=== PATIENT | female | born 1955 | race Two or more races ===

== ENCOUNTER 2021-06-25 07:15 | Inpatient (IN) | payer OTHER ==
[~2021-06-25 07:15] MED LIST: INTEGRA PLUS C1 EACH PO; OXYC1TAB9 PO; XARELTO10 MG PO
[2021-06-25] MEDS ORDERED: COZAAR100 MG (09:22)
[2021-06-25] MEDS ORDERED: NEURONTIN800 MG (09:23)
[2021-06-25] MEDS ORDERED: RESTORIL30 M1 (09:23)
[2021-06-25] MEDS ORDERED: ATORVASTATIN CA20 MG (09:23)
[2021-06-25] MEDS ORDERED: TRAZODONE HCL150 MG (09:23)
[2021-06-25] MEDS ORDERED: METOPROLOL SUCC25 MG (09:23)
[2021-06-25] MEDS ORDERED: TEGRETOL XR200 MG (09:24)
[2021-06-25] MEDS ORDERED: PREVACID30 M1 (09:24)
[2021-06-25] MEDS ORDERED: DEPAKOTE ER250 MG (09:24)
[2021-07-01] MEDS ORDERED: XARELTO10 MG PO (06:36)
[2021-07-01] MEDS ORDERED: OXYC1TAB9 PO (06:36)
[2021-07-01] MEDS ORDERED: INTEGRA PLUS C1 EACH PO (06:36)
[2021-07-01] MEDS ORDERED: BACTRIM DS TAB1 EACH PO (06:36)
== END 2021-07-01 18:58 | DRG 468 ==
LOC: O/R 06-29 07:10 → SURH 06-29 07:15 → SURG 06-29 20:42
PROVIDERS: ADMIT Orthopaedic Surgery Sports Medicine; ATTEND Orthopaedic Surgery Sports Medicine
PROC: 0SRV0J9 Replacement of Right Knee Joint, Tibial Surface with Synthetic Substitute, Cemented, Open Approach (ICD-10-PCS; 2021-06-29)
PROC: 0SPV0JZ Removal of Synthetic Substitute from Right Knee Joint, Tibial Surface, Open Approach (ICD-10-PCS; principal; 2021-06-29 10:45)
DX: T84.032A Mechanical loosening of internal right knee prosthetic joint, initial encounter (principal); I10 Essential (primary) hypertension